=== PATIENT | male | born 1985 | race Two or more races ===

== ENCOUNTER 2022-02-01 16:46 | Emergency (ER) | payer OTHER ==
[~2022-02-01] VITALS: Ht 172.7 cm; Wt 113.4 kg
[2022-02-01] MEDS ORDERED: DIOVAN40 MG (18:01)
[2022-02-01] MEDS ORDERED: DICLOFENAC SODI75 MG PO (20:49)
== END 2022-02-01 20:57 | disposition home or self-care (01) ==
LOC: ER 16:46
DX: R10.9 Unspecified abdominal pain (principal); Z91.018 Allergy to other foods